=== PATIENT | female | born 1975 ===

== ENCOUNTER → 2018-01-18 | Outpatient (CLI) | payer BC ==
--- NOTE | 2018-01-18 13:30 | US ---
EXAMINATION TYPE: US pelvis complete transvag DATE OF EXAM: 01/18/2018 COMPARISON: NONE CLINICAL HISTORY: RLQ pain R10.31, N83.201 UNSP OVARIAN CYST, RIGHT SIDE. Right side pain TECHNIQUE: . Transabdominal sonographic images of the pelvis were acquired. Transvaginal sonographi c images were medically necessary to better assess the following anatomy: Date of LMP: About 2 years ago EXAM MEASUREMENTS: Uterus: 9.1 x 5.6 x 5.5 cm Endometrial Stripe: 0.5 cm Right Ovary: 3.7 x 2.6 x 2.7 cm Left Ovary: 2.4 x 1.3 x 1.5 cm 1. Uterus: Anteverted Heterogeneous myometrium. Multiple hypoechoic areas visualized, largest heena uring 1.5 x 1.5 x 1.3 cm, probable fibroids 2. Endometrium: Possible fluid visualized within the endometrium. Difficult to evaluate due to possi ble fibroids 3. Right Ovary: Cystic area with septations visualized measuring 1.8 x 1.8 x 1.9 cm 4. Left Ovary: wnl 5. Bilateral Adnexa: wnl 6. Posterior cul-de-sac: wnl IMPRESSION: 1. Suspect leiomyomatous change of the uterus. 2. Complex cystic lesion right ovary. Consider follow-up examination in 6 weeks.
--- NOTE | 2018-01-18 13:35 | US ---
EXAMINATION TYPE: US abdomen complete DATE OF EXAM: 01/18/2018 COMPARISON: NONE CLINICAL HISTORY: RLQ pain R10.31, N83.201 UNSPEC OVARIAN CYST RIGHT SIDE. Right side pain EXAM MEASUREMENTS: Liver Length: 19.8 cm Gallbladder Wall: 0.2 cm CBD: 0.7 cm Spleen: 10.7 cm Right Kidney: 11.2 x 4.8 x 5.3 cm Left Kidney: 11.4 x 4.7 x 4.9 cm Pancreas: Obscured by bowel gas Liver: Enlarged. Increased attenuation, decreased visualization of vessels suggestive of fatty infil trate Gallbladder: wnl Evidence for sonographic Dailey's sign: No CBD: Upper limits of normal, distal portion obscured by bowel gas Spleen: wnl Right Kidney: No hydronephrosis or masses seen Left Kidney: No hydronephrosis or masses seen Upper IVC: wnl Abd Aorta: wnl IMPRESSION: 1. Hepatomegaly with the underlying hepatic steatosis versus diffuse hepatocellular disease. Correlat e clinically.
== END | disposition home or self-care (01) ==
LOC: EDSEX 11:15 → RADUSWWP 11:15
PROVIDERS: ATTEND Family Medicine
DX: N83.201 Unspecified ovarian cyst, right side (principal); R16.0 Hepatomegaly, not elsewhere classified
CPT/HCPCS: 76700; 76830; 76856